=== PATIENT | female | born 1985 | race Caucasian/White ===

== ENCOUNTER 2020-10-06 17:41 | Emergency (ER) | payer SELFPAY ==
[2020-10-06 17:59] VITALS: BP 128/84; PULSE 84; RESP 16; TEMP 36.5; O2SAT 99; BMI 25.0
--- NOTE | 2020-10-06 20:27 | W.ED.WEAKNES ---
HPI - Weakness General: Chief complaint: Weakness Stated complaint: weak, feels faint, nausea Time Seen by Provider: 10/06/20 20:07 Source: patient Mode of arrival: ambulatory Limitations: no limitations History of Present Illness: HPI Narrative: 35-year-old female comes in today with general complaints of weakness. Patient reports that she has had a history of renal calculi and urinary tract infections. Patient states that symptoms been going on for over 2 months. Patient denies any pain. Patient denies any routine medications [id number] or prescription. Patient appears well. Patient appears in no pain. MD Complaint: generalized weakness Review of Systems General: Reports: 10 or more systems reviewed and unremarkable except in HPI and below Const: Reports: malaise [facility] ED PFSH: Social History (Updated 10/06/20 @ 18:05 by Pancho Ventura RN) Smoking and tobacco status: heavy tobacco smoker cigarettes Packs smoked per day: 1.25 Alcohol intake: current Alcohol intake frequency: holidays/special occasions only Substance/Drug Use: current Substance/Drug use frequency: few times a week Substance/Drug use type: Marijuana Physical Exam Const: COMMON NORMALS: no acute distress and patient oriented x3 GENERAL APPEARANCE: cooperative HENMT: COMMON NORMALS: normocephalic and Normal external nose present HEAD & SCALP: normal to inspection and normocephalic NOSE: Normal external nose present MOUTH: Normal oral and palatal mucosa present Eye: GENERAL EYE: appearance normal, both eyes and all related structures Neck/C-Spine: COMMON NORMALS: full ROM Lymph: LYMPHATIC: no lymphadenopathy noted Chest: COMMONS NORMALS: normal inspection of the chest Resp: COMMON NORMALS: normal respiratory effort EFFORT & INSPECTION: Yes able to speak in complete sentences Cardio: COMMON NORMALS: regular rate and regular rhythm RATE: regular rate RHYTHM: regular rhythm GI: COMMON NORMALS: non-tender : COMMON NORMALS: Yes no CVA tenderness BLADDER/KIDNEY EXAM: Yes no CVA tenderness Back/Pelvis: COMMON NORMALS: no CVA tenderness and thoracic and lumbar spine normal to inspection Extremity: COMMON NORMALS: normal to inspection Neuro: COMMON NORMALS: patient oriented x3 and moves all extremities Psych: COMMON NORMALS: mental status grossly normal and cooperative Skin: COMMON NORMALS: no rashes or lesions noted GENERAL SKIN EXAM: no rashes or lesions noted Course Vital Signs: Vital signs: Vital Signs Temperature 97.7 F 11/21/20 17:59 Pulse Rate 59 L 10/06/20 22:57 Respiratory Rate 16 10/06/20 17:59 Blood Pressure 128/86 10/06/20 22:57 Pulse Oximetry 99 10/06/20 17:59 MDM - Weakness MDM Narrative: Medical decision making narrative: Patient comes in to the ER stating that she just do not feel well. Patient reports for last 2 months she just has not felt well. Patient has a history of renal stones she reports. Patient does not think she has a kidney stone at this time but thinks she might have a urinary tract infection. Patient appears well. Patient appears in no distress. Abdomen soft nontender. Skin was warm and dry. Vital signs were normal. Differential diagnosis includes but not limited to UTI, malingering, vestibular neuritis, electrolyte disturbance. Laboratory values were normal except for some mild elevation of white blood cells at 12,000. Urine was positive for red blood cells, white blood cells, and some bacteria. Reviewed exam with patient with recommendations for treatment for urinary tract infection. Patient reported understanding agreed to plan. Lab Data: Labs: Lab Results 10/06/20 10/06/20 10/06/20 Range/Units 20:57 20:57 20:57 WBC 12.2 H (4.0-10.0) 10^3/ uL RBC 4.72 (4.1-5.3) 10^6/u L Hgb 15.1 (11.5-15.3) g/dL Hct 45.1 (37.0-47.0) % MCV 95.6 (81-99) fL MCH 32.0 (28.0-34.0) pg MCHC 33.5 (30.0-36.0) g/dL RDW 12.6 (12.1-15.1) % Plt Count 188 (130-400) 10^3/c mm MPV 11.4 H (7.4-10.4) fL Neut % (Auto) 70.0 % Lymph % (Auto) 24.7 % [place] % (Auto) 4.6 % Eos % (Auto) 0.2 % Baso % (Auto) 0.3 % Neut # (Auto) 8.51 H (1.8-7.7) 10^3/u L Lymph # (Auto) 3.0 (0.8-4.8) 10^3/u L [place] # (Auto) 0.6 (0.2-0.9) 10^3/u L Eos # (Auto) 0.0 (0.0-0.8) 10^3/u L Baso # (Auto) 0.0 (0.0-0.1) 10^3/u L Nucleated RBC % (a uto) 0 % Nucleated RBCs # 0.0 /100WBC Sodium 138 (136-145) mmol/L Potassium 3.5 (3.5-5.1) mmol/L Chloride 103 (98-107) mmol/L Carbon Dioxide 23 (22-29) mmol/L Anion Gap 15.5 (5-19) BUN 13 (6-20) mg/dL Creatinine 0.7 (0.5-0.9) mg/dL GFR Calculation 95.2 (90-130) mL/min Glucose 95 (65-115) mg/dL Calculated Osmolal ity 286 (285-295) mOsm/k g Calcium 9.7 (8.5-10.5) mg/dL Magnesium 2.0 (1.7-2.3) mg/dL Total Bilirubin 0.3 (0.15-1.2) mg/dL AST 14 (0-32) U/L ALT 13 (0-33) U/L Alkaline Phosphata se 61 (35-105) IU/L Troponin T Gen 5 n g/L (0-10) ng/L Total Protein 7.1 (6.6-8.7) g/dL Albumin 4.7 (3.5-5.2) g/dL Globulin 2.4 (1.3-4.6) g/dL TSH 1.17 (0.27-4.20) uIU/ mL HCG, Qual Negative (Negative) Urine Color (Yellow) Urine Appearance (CLEAR) Urine pH (5-7) Ur Specific Gravit y (1.005-1.030) Urine Protein (Negative) Urine Glucose (UA) (Normal) Urine Ketones (Negative) Urine Blood (Negative) Urine Nitrate (Negative) Urine Bilirubin (Negative) Urine Urobilinogen (Negative) mg/dL Ur Leukocyte Adelia ase (Negative) Urine RBC (0-2) /hpf Urine WBC (0-5) /hpf Ur Squamous Epith Cells (0-5) /hpf Ur Transition Epit h Cell /hpf Amorphous Sediment Urine Bacteria (NONE) /hpf Urine Mucus /hpf 10/06/20 10/06/20 Range/Units 20:57 22:05 WBC (4.0-10.0) 10^3/ uL RBC (4.1-5.3) 10^6/u L Hgb (11.5-15.3) g/dL Hct (37.0-47.0) % MCV (81-99) fL MCH (28.0-34.0) pg MCHC (30.0-36.0) g/dL RDW (12.1-15.1) % Plt Count (130-400) 10^3/c mm MPV (7.4-10.4) fL Neut % (Auto) % Lymph % (Auto) % [place] % (Auto) % Eos % (Auto) % Baso % (Auto) % Neut # (Auto) (1.8-7.7) 10^3/u L Lymph # (Auto) (0.8-4.8) 10^3/u L [place] # (Auto) (0.2-0.9) 10^3/u L Eos # (Auto) (0.0-0.8) 10^3/u L Baso # (Auto) (0.0-0.1) 10^3/u L Nucleated RBC % (a uto) % Nucleated RBCs # /100WBC Sodium (136-145) mmol/L Potassium (3.5-5.1) mmol/L Chloride (98-107) mmol/L Carbon Dioxide (22-29) mmol/L Anion Gap (5-19) BUN (6-20) mg/dL Creatinine (0.5-0.9) mg/dL GFR Calculation (90-130) mL/min Glucose (65-115) mg/dL Calculated Osmolal ity (285-295) mOsm/k g Calcium (8.5-10.5) mg/dL Magnesium (1.7-2.3) mg/dL Total Bilirubin (0.15-1.2) mg/dL AST (0-32) U/L ALT (0-33) U/L Alkaline Phosphata se (35-105) IU/L Troponin T Gen 5 n g/L 6 (0-10) ng/L Total Protein (6.6-8.7) g/dL Albumin (3.5-5.2) g/dL Globulin (1.3-4.6) g/dL TSH (0.27-4.20) uIU/ mL HCG, Qual (Negative) Urine Color Yellow (Yellow) Urine Appearance Clear (CLEAR) Urine pH 5 (5-7) Ur Specific Gravit y 1.020 (1.005-1.030) Urine Protein Neg (Negative) Urine Glucose (UA) Norm (Normal) Urine Ketones 2+ H (Negative) Urine Blood 3+ H (Negative) Urine Nitrate Negative (Negative) Urine Bilirubin Neg (Negative) Urine Urobilinogen Norm (Negative) mg/dL Ur Leukocyte Adelia ase Negative (Negative) Urine RBC 0-4 H (0-2) /hpf Urine WBC 0-4 H (0-5) /hpf Ur Squamous Epith Cells 0-4 H (0-5) /hpf Ur Transition Epit h Cell 0-4 /hpf Amorphous Sediment Not Reportable Urine Bacteria 1+ H (NONE) /hpf Urine Mucus 1+ /hpf Discharge Plan Discharge Patient Disposition: Home Clinical Impression: UTI (urinary tract infection) Qualifiers: Urinary tract infection type: acute cystitis Hematuria presence: with hematuria Qualified Code(s): N30.01 - Acute cystitis with hematuria Condition: Stable Prescriptions: New Bactrim DS 800-160 mg tablet 1 tab PO BID 7 Days Qty: 14 RF: 0 Discharge Orders: Discharge Order (Routine); Ordered 10/06/20 Ordered By: Aidan Laws Referrals: John Madrigal NP [Primary Care Provider] - Discharge Diet: Usual diet Discharge Activity: Increase activity as tolerated Patient Instructions: Urinary Tract Infection in Women (ED) Activity Restrictions/Additional Instructions: Drink plenty of water. Take medication as directed for the next 7 days. Follow-up with primary care for further treatment and evaluation. Return to the emergency department for new concerns. Coding Level of Care Code ED Simulation Educator for Anton Fwelaina Exam Comprehensive
[2020-10-06 21:33] LABS: HCG, Serum Qual Negative (Negative)
[2020-10-06 21:43] LABS: Troponin T (5th) Once 6 ng/L (0-10)
[2020-10-06 21:49] LABS: Basophils % 0.3 %; Eosinophils % 0.2 %; Hematocrit 45.1 % (37.0-47.0); Hemoglobin 15.1 g/dL (11.5-15.3); Lymphocytes % 24.7 %; Mean Corpuscular HGB Conc 33.5 g/dL (30.0-36.0); Mean Corpuscular Volume 95.6 fL (81-99); Mean Platelet Volume 11.4 fL (7.4-10.4); Monocytes # 0.6 10^3/uL (0.2-0.9); Monocytes % 4.6 %; Neutrophils # 8.51 10^3/uL (1.8-7.7); Nucleated Red Blood Cells % 0 %; Platelet Count 188 10^3/cmm (130-400); Red Blood Count 4.72 10^6/uL (4.1-5.3); Red Cell Distribution Width 12.6 % (12.1-15.1); White Blood Count 12.2 10^3/uL (4.0-10.0)
[2020-10-06 21:51] LABS: Alanine Aminotransferase 13 U/L (0-33); Albumin Level 4.7 g/dL (3.5-5.2); Alkaline Phosphatase 61 IU/L (35-105); Anion Gap 15.5 (5-19); Aspartate Amino Transferase 14 U/L (0-32); Blood Urea Nitrogen 13 mg/dL (6-20); Calcium 9.7 mg/dL (8.5-10.5); Carbon Dioxide 23 mmol/L (22-29); Chloride 103 mmol/L (98-107); Globulin 2.4 g/dL (1.3-4.6); Glomerular Filtration Rate 95.2 mL/min (90-130); Glucose 95 mg/dL (65-115); Osmolality Calculated 286 mOsm/kg (285-295); Potassium 3.5 mmol/L (3.5-5.1); Sodium 138 mmol/L (136-145); Thyroid Stimulating Hormone 1.17 uIU/mL (0.27-4.20); Total Bilirubin 0.3 mg/dL (0.15-1.2); Total Protein 7.1 g/dL (6.6-8.7)
[2020-10-06 22:54] LABS: Add Urine Microscopic? YES; Bilirubin Urine Neg (Negative); Blood Urine 3+ (Negative); Glucose Urine UA Norm (Normal); Ketones Urine 2+ (Negative); Leukocyte Esterase Urine Negative (Negative); Nitrate Urine Negative (Negative); Protein Urine Neg (Negative); Urine Appearance Clear (CLEAR); Urine Color Yellow (Yellow); Urobilinogen Urine Norm (Negative); pH Urine 5 (5-7)
[2020-10-06 22:55] LABS: RBC Urine 0-4 /hpf (0-2); Squamous Epithelial Cell Urine 0-4 /hpf (0-5); WBC Urine 0-4 /hpf (0-5)
[2020-10-06 22:56] LABS: Add Urine Culture? No; Bacteria Urine 1+ /hpf; Mucus Urine 1+ /hpf; Transitional Epi Cells Urine 0-4 /hpf
[2020-10-06 22:57] VITALS: BP 122/79; BP 122/91; BP 128/86; PULSE 59; PULSE 65; PULSE 87
[2020-10-06] MEDS: sulfamethoxazole-trimeth DS 160-800 mg Tablet 1 TAB PO (23:13)
== END 2020-10-06 23:15 | disposition home or self-care (01) ==
PROVIDERS: Emergency Provider Nurse Practitioner Family; PCP Nurse Practitioner Family
DX: N30.01 Acute cystitis with hematuria (principal); F17.210 Nicotine dependence, cigarettes, uncomplicated
CPT/HCPCS: 12345; 36415; 80053; 81001; 83735; 84443; 84484; 84703; 85025; 99281; 99283

== ENCOUNTER 2020-10-10 09:53 | Emergency (ER) | payer SELFPAY ==
[2020-10-10] VITALS (12 sets, daily range): BP systolic 96–133; BP diastolic 66–85; PULSE 65–84; RESP 16–18; TEMP 37; O2SAT 95–99; BMI 25.0
--- NOTE | 2020-10-10 10:09 | XR_ITS ---
WS: [id number] XR chest 1V portable [id number] REASON FOR EXAM: dyspnea/cough FINDINGS: The heart and mediastinum are within normal limits. Reticular nodular interstitial infiltrative [place] in both lower lobes. Minimal blunting of both costophrenic angles. Bony thorax is intact. XR/XR chest 1V portable [id number] IMPRESSION: Infiltrative changes in both lung bases compatible with acute pneumonitis. There may be small amounts of pleural fluid bilaterally.
--- NOTE | 2020-10-10 10:10 | CT_ITS ---
WS: [id number] CT ABDOMEN AND PELVIS WITH CONTRAST HISTORY: Abdominal pain for one week. TECHNIQUE: Imaging performed of the abdomen and pelvis with IV contrast. Single phase imaging of the abdomen. Coronal and sagittal reformats are submitted. All CT scans at [facility] use at least one of these dose optimization techniques: automated exposure control; mA and/or kV adjustment per patient size (includes targeted exams where dose is matched to clinical indication); or iterativ e reconstruction. IV CONTRAST: Omnipaque 300; 95 mL IV. Oral contrast: No DLP: 537.45 mGy.cm COMPARISON: None available. Lower thorax: Lung bases are clear. Heart is normal size. No hiatal hernia. Liver/biliary system: Normal size with no intrahepatic dilatation. Gallbladder: Mildly contracted gallbladder. No stones or inflammation. Pancreas: Normal. Spleen: Normal. Adrenal glands: Normal. Right kidney: Normal size kidney. There is several small, subcentimeter low-attenuation lesions which are probably cortical cysts. No obstruction. Left kidney: Enlarged kidney measures 13.2 cm in length. There is delayed enhancement of the renal pa renchyma. There are numerous areas of decreased attenuation which are probably cysts throughout the k idney. No obstruction. No calcification. Aorta: Normal. Lymphadenopathy: None. Free fluid: None. GI tract: The appendix is normal. No inflammation surrounding the appendix. There is some very minima l mucosal thickening involving the transverse colon and descending colon suggesting a mild colitis. N o fluid or adenopathy. Abdominal wall: Fat-containing umbilical hernia. Pelvis: Normally distended urinary bladder. Normal size uterus. No adnexal masses. Bones: Unremarkable. CT/CT abdomen pelvis w con* [id number] IMPRESSION: 1. No evidence for appendicitis. 2. Mild colitis involving the transverse and descending colon. No adenopathy o r ascites. 3. Enlarged LEFT kidney with numerous cysts and slight delayed excretion. No p rior studies but this is probably polycystic kidney disease. There are smaller cysts without renal enlargement on the RIGHT.
--- NOTE | 2020-10-10 10:20 | PC.NURSE ---
XR performed at bedside
--- NOTE | 2020-10-10 10:24 | W.ED.NAVMDI ---
HPI - Nausea/Vomiting/Diarrhea General: Chief complaint: Nausea/Vomiting/Diarrhea Stated complaint: uti Time Seen by Provider: 10/10/20 10:09 History of Present Illness: HPI Narrative: 35-year-old female presents complaining of nausea vomiting with dizziness for the last week. She was diagnosed with a UTI about 5 days ago she feels like UTI symptoms are better but she still is having nausea and vomiting she is also had some loose stools. She denies any hematochezia melena hematemesis or coffee-ground emesis. He was started on Bactrim when she was seen previously. She has subjectively had some fevers and chills she describes more as hot like hot flashes. She has had quite a bit of nausea no vomiting however, some loose stools.. She localizes most of her pain to the right lower quadrant. MD elicited complaint: nausea and flank pain Pertinent past history: anorexia Onset (ago): day(s) Description of diarrhea: semi-solid Associated nausea: Yes Radiation: RLQ Pain consistency: constant Severity: moderate Quality: cramping Exacerbating factors: none Relieving factors: none Associated symtoms: Reports fevers/chills, anorexia and nausea; Denies altered mental status, anxiety, bloating, change in vision, chest pain, cough, diaphoresis, decreased urine output, dizziness, dysuria, epistaxis, fatigue, fecal incontinence, headache(s), malaise, myalgias, numbness, palpitations, rash, short of breath, syncope, tenesmus, tinnitus or weakness Review of Systems Const: Denies: fatigue, malaise or diaphoresis Eyes: Denies: change in vision ENMT: Denies: tinnitus or epistaxis Card: Denies: chest pain, palpitations or syncope Resp: Denies: dyspnea, productive cough or non-productive cough GI: Reports: nausea; Denies: bloating or fecal incontinence : Denies: dysuria Skin/Breast: Denies: rash or pruritus Neuro: Denies: headache(s) or dizziness Psych: Denies: anxiety PFSH ED PFSH: Medical History (Updated 10/10/20 @ 13:11 by Owen Villatoro DO) Cervical cancer Nephrolithiasis Surgical History (Updated 10/10/20 @ 11:43 by Owen Villatoro DO) Hx of tympanostomy tubes S/P tonsillectomy and adenoidectomy Social History Smoking and tobacco status: heavy tobacco smoker cigarettes Packs smoked per day: 1.25 Alcohol intake: current Alcohol intake frequency: holidays/special occasions only Physical Exam Const: COMMON NORMALS: no acute distress EXAM LIMITATIONS: no altered mental status GENERAL APPEARANCE: cooperative and comfortable ORIENTATION/CONSCIOUSNESS: Yes awake, Yes oriented to person, Yes oriented to place and Yes oriented to time HENMT: COMMON NORMALS: normocephalic, atraumatic and hearing grossly normal bilaterally HEAD & SCALP: normocephalic and atraumatic Neck/C-Spine: COMMON NORMALS: no JVD Resp: COMMON NORMALS: normal respiratory effort, No retractions, No use of accessory muscles and clear to auscultation bilaterally AUSCULTATION: clear to auscultation bilaterally Cardio: COMMON NORMALS: no JVD, regular rate, regular rhythm and No murmurs present (Cardio) RATE: regular rate RHYTHM: regular rhythm GI: PALPATION: Yes Tenderness to palpation present (GI) Details: RLQ PERCUSSION: normal to percussion OTHER: Mild CVA tenderness on the right Extremity: COMMON NORMALS: normal to inspection, capillary refill normal, no clubbing, cyanosis or edema, no calf tenderness and no pedal edema Neuro: SENSORIUM/ORIENTATION: Yes oriented to person, Yes oriented to place and Yes oriented to time Skin: COMMON NORMALS: no rashes or lesions noted GENERAL SKIN EXAM: no rashes or lesions noted Course Vital Signs: Vital signs: Vital Signs Temperature 98.6 F 10/10/20 09:57 Pulse Rate 66 10/10/20 12:06 Respiratory Rate 16 10/10/20 12:06 Blood Pressure 121/68 10/10/20 12:06 Pulse Oximetry 96 10/10/20 12:06 MDM - Nausea/Vomiting/Diarrhea MDM Narrative: Medical decision making narrative: CT of the abdomen negative. At most recent visit 1121 beta-hCG was negative. UA is unremarkable. The only significant finding we have is of polycystic left kidney. We will go ahead and discharge her with pain and nausea medications have her follow-up with nephrology if her pain becomes uncontrollable return. Lab Data: Labs: Lab Results 10/10/20 10/10/20 10/10/20 Range/Units 10:10 10:28 10:28 WBC 8.1 (4.0-10.0) 10^3/ uL RBC 4.90 (4.1-5.3) 10^6/u L Hgb 15.5 H (11.5-15.3) g/dL Hct 46.1 (37.0-47.0) % MCV 94.1 (81-99) fL MCH 31.6 (28.0-34.0) pg MCHC 33.6 (30.0-36.0) g/dL RDW 12.7 (12.1-15.1) % Plt Count 180 (130-400) 10^3/c mm MPV 10.8 H (7.4-10.4) fL Neut % (Auto) 70.5 % Lymph % (Auto) 22.4 % [place] % (Auto) 6.3 % Eos % (Auto) 0.2 % Baso % (Auto) 0.4 % Neut # (Auto) 5.70 (1.8-7.7) 10^3/u L Lymph # (Auto) 1.8 (0.8-4.8) 10^3/u L [place] # (Auto) 0.5 (0.2-0.9) 10^3/u L Eos # (Auto) 0.0 (0.0-0.8) 10^3/u L Baso # (Auto) 0.0 (0.0-0.1) 10^3/u L Nucleated RBC % (a uto) 0 % Nucleated RBCs # 0.0 /100WBC Sodium 139 (136-145) mmol/L Potassium 3.8 (3.5-5.1) mmol/L Chloride 104 (98-107) mmol/L Carbon Dioxide 22 (22-29) mmol/L Anion Gap 16.8 (5-19) BUN 7 (6-20) mg/dL Creatinine 0.7 (0.5-0.9) mg/dL GFR Calculation 95.2 (90-130) mL/min Glucose 129 H (65-115) mg/dL Calculated Osmolal ity 288 (285-295) mOsm/k g Calcium 9.3 (8.5-10.5) mg/dL Total Bilirubin 0.2 (0.15-1.2) mg/dL AST 15 (0-32) U/L ALT 16 (0-33) U/L Alkaline Phosphata se 63 (35-105) IU/L Total Protein 7.5 (6.6-8.7) g/dL Albumin 4.4 (3.5-5.2) g/dL Globulin 3.1 (1.3-4.6) g/dL Lipase 23 (13-60) U/L Urine Color Straw (Yellow) Urine Appearance Clear (CLEAR) Urine pH 6.5 (5-7) Ur Specific Gravit y 1.005 (1.005-1.030) Urine Protein Neg (Negative) Urine Glucose (UA) Norm (Normal) Urine Ketones Negative (Negative) Urine Blood 2+ H (Negative) Urine Nitrate Negative (Negative) Urine Bilirubin Neg (Negative) Urine Urobilinogen Neg (Negative) mg/dL Ur Leukocyte Adelia ase Negative (Negative) Urine RBC 0-4 H (0-2) /hpf Urine WBC None (0-5) /hpf Ur Squamous Epith Cells 0-4 H (0-5) /hpf Amorphous Sediment Not Reportable Urine Bacteria Trace (NONE) /hpf Urine Mucus 1+ /hpf Discharge Plan Discharge Patient Disposition: Home Clinical Impression: Polycystic kidney disease, Abdominal pain Condition: Stable Prescriptions: New hydrocodone-acetaminophen 5-325 mg tablet 1 tab PO Q6H PRN (Reason: pain) Qty: 25 RF: 0 Zofran 4 mg tablet 4 mg PO Q6H PRN (Reason: nausea and vomiting) Qty: 20 RF: 0 No Action sulfamethoxazole-trimethoprim [Bactrim DS] 800-160 mg tablet 1 tab PO BID 7 Days Qty: 14 RF: 0 multivitamin Tablet 1 tab PO DAILY RF: 0 ibuprofen 200 mg Tablet 200 mg PO PRN RF: 0 Discharge Orders: Discharge Order (Routine); Ordered 10/10/20 Ordered By: Owen Villatoro Referrals: John Madrigal NP [Primary Care Provider] - Discharge Diet: Usual diet Discharge Activity: Increase activity as tolerated Activity Restrictions/Additional Instructions: Case management will call with a referral to nephrology. Return if you have worsening pain not controlled by prescriptions given at the time of discharge. Coding Level of Care Code ED Consumer Marketing Manager for g Fwd Exam Comprehensive
[2020-10-10] MEDS: ondansetron 2 mg/ML SDV 2 mL 4 MG IVP (10:28)
[2020-10-10] MEDS: sodium chloride 0.9% 1,000 ML 999 ML IV (10:29)
[2020-10-10 10:42] LABS: Basophils % 0.4 %; Eosinophils % 0.2 %; Hematocrit 46.1 % (37.0-47.0); Hemoglobin 15.5 g/dL (11.5-15.3); Lymphocytes # 1.8 10^3/uL (0.8-4.8); Lymphocytes % 22.4 %; Mean Corpuscular HGB Conc 33.6 g/dL (30.0-36.0); Mean Corpuscular Hemoglobin 31.6 pg (28.0-34.0); Mean Corpuscular Volume 94.1 fL (81-99); Mean Platelet Volume 10.8 fL (7.4-10.4); Monocytes # 0.5 10^3/uL (0.2-0.9); Monocytes % 6.3 %; Neutrophils % 70.5 %; Nucleated Red Blood Cells % 0 %; Platelet Count 180 10^3/cmm (130-400); Red Cell Distribution Width 12.7 % (12.1-15.1); White Blood Count 8.1 10^3/uL (4.0-10.0)
[2020-10-10 10:50] LABS: Add Urine Microscopic? YES; Bilirubin Urine Neg (Negative); Blood Urine 2+ (Negative); Glucose Urine UA Norm (Normal); Ketones Urine Negative (Negative); Leukocyte Esterase Urine Negative (Negative); Nitrate Urine Negative (Negative); Protein Urine Neg (Negative); Specific Gravity, Urine 1.005 (1.005-1.030); Urine Appearance Clear (CLEAR); Urine Color Straw (Yellow); Urobilinogen Urine Neg (Negative); pH Urine 6.5 (5-7)
[2020-10-10 10:51] LABS: Add Urine Culture? No; Bacteria Urine TRACE /hpf; Mucus Urine 1+ /hpf; RBC Urine 0-4 /hpf (0-2); Squamous Epithelial Cell Urine 0-4 /hpf (0-5)
[2020-10-10] MEDS: iohexol 300 mg/mL 100 mL Btl IV (10:54)
--- NOTE | 2020-10-10 10:57 | PC.NURSE ---
Pt to CT
[2020-10-10 11:04] LABS: Alanine Aminotransferase 16 U/L (0-33); Albumin Level 4.4 g/dL (3.5-5.2); Alkaline Phosphatase 63 IU/L (35-105); Anion Gap 16.8 (5-19); Aspartate Amino Transferase 15 U/L (0-32); Blood Urea Nitrogen 7 mg/dL (6-20); Calcium 9.3 mg/dL (8.5-10.5); Carbon Dioxide 22 mmol/L (22-29); Chloride 104 mmol/L (98-107); Globulin 3.1 g/dL (1.3-4.6); Glomerular Filtration Rate 95.2 mL/min (90-130); Glucose 129 mg/dL (65-115); Lipase 23 U/L (13-60); Osmolality Calculated 288 mOsm/kg (285-295); Potassium 3.8 mmol/L (3.5-5.1); Sodium 139 mmol/L (136-145); Total Bilirubin 0.2 mg/dL (0.15-1.2); Total Protein 7.5 g/dL (6.6-8.7)
--- NOTE | 2020-10-10 11:32 | US_ITS ---
WS: [id number] RENAL ULTRASOUND REASON FOR EXAM: R flank pain TECHNIQUE: Grayscale and Doppler ultrasound examination of the kidneys. FINDINGS: Right kidney: Right kidney measures 11.8 cm x 5.7 cm x 4.9 cm. No mass, hydronephrosis, or calculus. The multiple tiny cysts in the right kidney on the CT scan of earlier today are not identifiable on u ltrasound. Left kidney: Left kidney measures 11.2 cm x 5.2 cm x 6.3 cm. No calculus or hydronephrosis. Multiple cysts of varying size. Unremarkable urinary bladder. No other significant finding. US/US renal BI* [id number] IMPRESSION: Ultrasound evidence no further information to the CT scan on the abnormalities of the kidneys. The CT images are very suggestive of a variation in APKD, espec ially the left kidney.
[2020-10-10] MEDS: morphine 4 mg/mL SDV 1 mL 2 MG IVP (11:38)
--- NOTE | 2020-10-10 12:07 | PC.NURSE ---
Report given to SOFIYA Lora
== END 2020-10-10 13:34 | disposition home or self-care (01) ==
PROVIDERS: Emergency Provider Family Medicine; PCP Nurse Practitioner Family
DX: Q61.3 Polycystic kidney, unspecified (principal); Z85.41 Personal history of malignant neoplasm of cervix uteri; F17.210 Nicotine dependence, cigarettes, uncomplicated
CPT/HCPCS: 12345; 71045; 74177; 76770; 80053; 81001; 83690; 85025; 96361; 96374; 96375; 99283; J2270; J2405; J7030; Q9967

== ENCOUNTER 2020-10-12 09:30 | Emergency (ER) | payer SELFPAY ==
[2020-10-12 09:40] VITALS: BP 124/76; PULSE 86; RESP 16; TEMP 36.9; O2SAT 97; BMI 25.0
--- NOTE | 2020-10-12 09:54 | W.ED.FEMALGU ---
HPI - Female Genitourinary General: Chief complaint: Urogenital-Female Stated complaint: CYSTS ON KIDNEYS/NOT GETTING BETTER Time Seen by Provider: 10/12/20 09:48 History of Present Illness: HPI Narrative: 35-year-old female was seen [address] and her other work-up only showed polycystic kidney. She complained of some abdominal pain is more predominantly right-sided but there is no significant finding on the CT or lab work. She was discharged home with pain medications have scheduled follow-up with primary care and nephrology due to the holidays she was concerned because she does not have an appointment yet and is still having discomfort. States it is not worsened but also has not gotten any better. Patient denies fever dysuria denies diarrhea. CT done yesterday as well as renal ultrasound showed cystic kidney particularly in the left also there is a question of colitis but she has no colitis-like symptoms not having any diarrhea she does have some abdominal cramping. Interestingly today she relates more of her pain to her left side. She does state that the hydrocodone seem to make her stomach upset did not adequately treat the pain. Associated symptoms: Reports abdominal pain and nausea Review of Systems Const: Denies: fever(s), chills, body aches, change in appetite, fatigue or malaise ENMT: Denies: throat pain, ear or mastoid pain, nasal discharge or nasal congestion Card: Denies: chest pain, edema, dyspnea on exertion or orthopnea Resp: Denies: dyspnea, productive cough or non-productive cough GI: Reports: abdominal pain and nausea; Denies: vomiting, hematemesis, coffee ground emesis, diarrhea, constipation, bloating, hematochezia or melena : Reports: flank pain; Denies: difficulty voiding, dysuria, urinary frequency or urinary urgency Skin/Breast: Denies: rash or pruritus PFSH ED PFSH: Medical History Cervical cancer Nephrolithiasis Surgical History Hx of tympanostomy tubes S/P tonsillectomy and adenoidectomy Social History Smoking and tobacco status: heavy tobacco smoker cigarettes Packs smoked per day: 1.25 Alcohol intake: current Alcohol intake frequency: holidays/special occasions only Physical Exam Const: COMMON NORMALS: no acute distress GENERAL APPEARANCE: cooperative and comfortable ORIENTATION/CONSCIOUSNESS: Yes awake, Yes oriented to person, Yes oriented to place and Yes oriented to time HENMT: COMMON NORMALS: normocephalic, atraumatic and hearing grossly normal bilaterally HEAD & SCALP: normocephalic and atraumatic Eye: COMMON NORMALS: Equal, round and reactive pupils present, EOMs intact bilaterally, conjunctivae normal and no scleral icterus CONJUNCTIVA: Yes conjunctivae normal PUPIL: Yes Equal, round and reactive pupils present Neck/C-Spine: COMMON NORMALS: no JVD Resp: COMMON NORMALS: normal respiratory effort, No retractions, No use of accessory muscles and clear to auscultation bilaterally AUSCULTATION: clear to auscultation bilaterally Cardio: COMMON NORMALS: no JVD, regular rate, regular rhythm and No murmurs present (Cardio) RATE: regular rate RHYTHM: regular rhythm GI: COMMON NORMALS: Soft to palpation and No hepatosplenomegaly present AUSCULTATION: Yes normoactive bowel sounds PALPATION: Yes Soft to palpation, No Tenderness to palpation present (GI), No Guarding due to palpation present (GI) and Yes No hepatosplenomegaly present Extremity: COMMON NORMALS: normal to inspection, capillary refill normal, no clubbing, cyanosis or edema, no calf tenderness and no pedal edema Neuro: SENSORIUM/ORIENTATION: Yes oriented to person, Yes oriented to place and Yes oriented to time Skin: COMMON NORMALS: no rashes or lesions noted GENERAL SKIN EXAM: no rashes or lesions noted Course Vital Signs: Vital signs: Vital Signs Temperature 98.4 F 10/12/20 09:40 Pulse Rate 87 10/12/20 10:03 Respiratory Rate 18 10/12/20 10:03 Blood Pressure 124/76 10/12/20 10:03 Pulse Oximetry 96 10/12/20 10:04 MDM - Female [facility] Narrative: Medical decision making narrative: Discussed with the patient that this is probably something more that will need to be managed. There was some colitis-like changes on her CT but they were very mild and is not having any diarrhea I think that giving her antibiotics this point would actually make it worse. We have actually discussed this yesterday as well. I will give her a different antiemetic and gave her a different pain medications, tramadol. Gave her handwritten prescription for promethazine. We will get her to follow-up with nephrology through case management. Also discussed with her given there is no significant changes in her lab work and has a benign abdominal exam would not recommend a repeat CT as it is unlikely to show anything at this point. Lab Data: Labs: Lab Results 10/12/20 10/12/20 10/12/20 Range/Units 10:10 10:10 10:54 WBC 8.9 (4.0-10.0) 10^3/ uL RBC 5.24 (4.1-5.3) 10^6/u L Hgb 16.6 H (11.5-15.3) g/dL Hct 49.5 H (37.0-47.0) % MCV 94.5 (81-99) fL MCH 31.7 (28.0-34.0) pg MCHC 33.5 (30.0-36.0) g/dL RDW 12.7 (12.1-15.1) % Plt Count 182 (130-400) 10^3/c mm MPV 10.7 H (7.4-10.4) fL Neut % (Auto) 68.6 % Lymph % (Auto) 25.1 % [place] % (Auto) 4.8 % Eos % (Auto) 0.9 % Baso % (Auto) 0.3 % Neut # (Auto) 6.10 (1.8-7.7) 10^3/u L Lymph # (Auto) 2.2 (0.8-4.8) 10^3/u L [place] # (Auto) 0.4 (0.2-0.9) 10^3/u L Eos # (Auto) 0.1 (0.0-0.8) 10^3/u L Baso # (Auto) 0.0 (0.0-0.1) 10^3/u L Nucleated RBC % (a uto) 0 % Nucleated RBCs # 0.0 /100WBC Sodium 137 (136-145) mmol/L Potassium 4.5 (3.5-5.1) mmol/L Chloride 103 (98-107) mmol/L Carbon Dioxide 21 L (22-29) mmol/L Anion Gap 17.5 (5-19) BUN 11 (6-20) mg/dL Creatinine 0.7 (0.5-0.9) mg/dL GFR Calculation 95.2 (90-130) mL/min Glucose 98 (65-115) mg/dL Calculated Osmolal ity 283 L (285-295) mOsm/k g Calcium 9.7 (8.5-10.5) mg/dL Urine Color Yellow (Yellow) Urine Appearance Clear (CLEAR) Urine pH 6.5 (5-7) Ur Specific Gravit y 1.005 (1.005-1.030) Urine Protein Neg (Negative) Urine Glucose (UA) Norm (Normal) Urine Ketones 1+ H (Negative) Urine Blood 2+ H (Negative) Urine Nitrate Negative (Negative) Urine Bilirubin Neg (Negative) Urine Urobilinogen Norm (Negative) mg/dL Ur Leukocyte Adelia ase Negative (Negative) Urine RBC 0-4 H (0-2) /hpf Urine WBC 0-4 H (0-5) /hpf Ur Squamous Epith Cells 10-15 H (0-5) /hpf Amorphous Sediment Not Reportable Urine Bacteria Trace (NONE) /hpf Discharge Plan Discharge Patient Disposition: Home Clinical Impression: Abdominal pain, Polycystic kidney disease Condition: Stable Prescriptions: New tramadol 50 mg tablet 50 mg PO Q6H PRN (Reason: pain) Qty: 30 RF: 0 No Action sulfamethoxazole-trimethoprim [Bactrim DS] 800-160 mg tablet 1 tab PO BID 7 Days Qty: 14 RF: 0 multivitamin Tablet 1 tab PO DAILY RF: 0 ibuprofen 200 mg Tablet 200 mg PO PRN RF: 0 hydrocodone-acetaminophen 5-325 mg tablet 1 tab PO Q6H PRN (Reason: pain) Qty: 25 RF: 0 ondansetron HCl [Zofran] 4 mg tablet 4 mg PO Q6H PRN (Reason: nausea and vomiting) Qty: 20 RF: 0 Depo-Provera See Rx Instructions .ROUTE .COMPLEX RF: 0 Discharge Orders: Discharge Order (Routine); Ordered 10/12/20 Ordered By: Owen Villatoro Referrals: John Madrigal NP [Primary Care Provider] - Discharge Diet: Usual diet Patient Instructions: Abdominal Pain (ED) Activity Restrictions/Additional Instructions: Case management will call to arrange for appointment with nephrology Coding Level of Care Code ED Glaze Maker for Chg Fwd Exam Comprehensive
[2020-10-12 10:03] VITALS: BP 124/76; PULSE 87; RESP 18; O2SAT 96
[2020-10-12 10:04] VITALS: O2SAT 96
[2020-10-12 10:25] LABS: Basophils % 0.3 %; Eosinophils # 0.1 10^3/uL (0.0-0.8); Eosinophils % 0.9 %; Hematocrit 49.5 % (37.0-47.0); Hemoglobin 16.6 g/dL (11.5-15.3); Lymphocytes # 2.2 10^3/uL (0.8-4.8); Lymphocytes % 25.1 %; Mean Corpuscular HGB Conc 33.5 g/dL (30.0-36.0); Mean Corpuscular Hemoglobin 31.7 pg (28.0-34.0); Mean Corpuscular Volume 94.5 fL (81-99); Mean Platelet Volume 10.7 fL (7.4-10.4); Monocytes # 0.4 10^3/uL (0.2-0.9); Monocytes % 4.8 %; Neutrophils % 68.6 %; Nucleated Red Blood Cells % 0 %; Platelet Count 182 10^3/cmm (130-400); Red Blood Count 5.24 10^6/uL (4.1-5.3); Red Cell Distribution Width 12.7 % (12.1-15.1); White Blood Count 8.9 10^3/uL (4.0-10.0)
[2020-10-12 10:44] LABS: Anion Gap 17.5 (5-19); Blood Urea Nitrogen 11 mg/dL (6-20); Calcium 9.7 mg/dL (8.5-10.5); Carbon Dioxide 21 mmol/L (22-29); Chloride 103 mmol/L (98-107); Glomerular Filtration Rate 95.2 mL/min (90-130); Glucose 98 mg/dL (65-115); Osmolality Calculated 283 mOsm/kg (285-295); Potassium 4.5 mmol/L (3.5-5.1); Sodium 137 mmol/L (136-145)
[2020-10-12 11:24] LABS: Add Urine Microscopic? YES; Bacteria Urine TRACE /hpf; Bilirubin Urine Neg (Negative); Blood Urine 2+ (Negative); Glucose Urine UA Norm (Normal); Ketones Urine 1+ (Negative); Leukocyte Esterase Urine Negative (Negative); Nitrate Urine Negative (Negative); Protein Urine Neg (Negative); RBC Urine 0-4 /hpf (0-2); Specific Gravity, Urine 1.005 (1.005-1.030); Urine Appearance Clear (CLEAR); Urine Color Yellow (Yellow); Urobilinogen Urine Norm (Negative); WBC Urine 0-4 /hpf (0-5); pH Urine 6.5 (5-7)
[2020-10-12 11:25] LABS: Add Urine Culture? No
[2020-10-12] MEDS: meclizine 25 mg tablet PO (11:53)
[2020-10-12 11:54] VITALS: RESP 18; O2SAT 98
[2020-10-12] MEDS: morphine 4 mg/mL SDV 1 mL 2 MG IVP (11:54)
[2020-10-12 12:04] VITALS: BP 115/69; PULSE 91; RESP 18; O2SAT 93
== END 2020-10-12 12:05 | disposition home or self-care (01) ==
PROVIDERS: Emergency Provider Family Medicine; PCP Nurse Practitioner Family
DX: Q61.3 Polycystic kidney, unspecified (principal); Z85.41 Personal history of malignant neoplasm of cervix uteri; F17.210 Nicotine dependence, cigarettes, uncomplicated
CPT/HCPCS: 12345; 80048; 81001; 85025; 96374; 96375; 99282; 99283; J2270; J8597

== ENCOUNTER 2021-04-09 14:02 | Outpatient (CLI) | payer MEDICAID, SELFPAY ==
--- NOTE | 2021-04-09 14:09 | US_ITS ---
WS: [id number] RENAL ULTRASOUND HISTORY: CKD STAGE 2 COMPARISON: CT 10/10/2020 TECHNIQUE: 2-D and color Doppler imaging of the kidney submitted. Right kidney: 10.8 cm x 6.1 cm x 4.6 cm. Normal echogenicity with no hydronephrosis or mass. Left kidney: 12.4 cm x 5.6 cm x 5.0 cm. Slightly enlarged kidney with multiple small cysts throughout the renal parenchyma. Similar to the pr ior CT of 10/10/2020. No obstruction. Aorta: Normal. Urinary Bladder: Nondistended. US/US renal BI* [id number] IMPRESSION: 1. Multiple small cysts throughout the LEFT kidney. Similar to the prior study of 10/10/2020. No hydronephrosis. 2. Normal RIGHT kidney.
== END 2021-04-09 14:03 | disposition home or self-care (01) ==
PROVIDERS: PCP Nurse Practitioner Family; Visit Provider Internal Medicine Nephrology
DX: N18.2 Chronic kidney disease, stage 2 (mild) (principal); Q61.02 Congenital multiple renal cysts
CPT/HCPCS: 76770

== ENCOUNTER 2022-01-01 16:28 | Emergency (ER) | payer SELFPAY ==
[2022-01-01 16:39] VITALS: BP 124/87; PULSE 86; RESP 14; TEMP 36.7; O2SAT 97; BMI 29.1
--- NOTE | 2022-01-01 17:55 | ECG_ITS ---
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 Measurements Intervals [place] Rate: 83 P: 79 WI: 150 QRS: -62 QRSD: 82 T: 64 QT: 376 QTc: 443 Interpretive Statements SINUS RHYTHM LOW QRS VOLTAGE IN PRECORDIAL LEADS [QRS DEFLECTION < 1.0 mV IN CHEST LEADS] LEFT ANTERIOR FASCICULAR BLOCK [QRS AXIS <= -45, QR IN I, RS IN II] POSSIBLE ANTERIOR MYOCARDIAL INFARCTION , PROBABLY OLD [30 ms Q WAVE IN V3/V4, OR R < 0.2 mV IN V4] No previous ECG available for comparison Electronically Signed On 01-01-2022 21:21:21 ACID BLEACHER by Hailey Galvan M.D. [id number]
[2022-01-01 17:59] VITALS: BP 116/104; PULSE 80; RESP 16; O2SAT 96
[2022-01-01 18:47] LABS: Basophils % 0.3 %; Eosinophils # 0.1 10^3/uL (0.0-0.8); Eosinophils % 0.6 %; Hematocrit 49.4 % (37.0-47.0); Hemoglobin 16.2 g/dL (11.5-15.3); Lymphocytes # 3.2 10^3/uL (0.8-4.8); Lymphocytes % 26.5 %; Mean Corpuscular HGB Conc 32.8 g/dL (30.0-36.0); Mean Corpuscular Hemoglobin 32.7 pg (28.0-34.0); Mean Corpuscular Volume 99.8 fl (81-99); Mean Platelet Volume 11.3 fL (7.4-10.4); Monocytes # 0.6 10^3/uL (0.2-0.9); Monocytes % 5.1 %; Neutrophils # 7.98 10^3/uL (1.8-7.7); Neutrophils % 67.2 %; Nucleated Red Blood Cells % 0 %; Platelet Count 189 10^3/cmm (130-400); Red Blood Count 4.95 10^6/uL (4.1-5.3); Red Cell Distribution Width 16.5 % (12.1-15.1); White Blood Count 11.9 10^3/uL (4.0-10.0)
[2022-01-01 18:59] VITALS: BP 133/90; PULSE 80; RESP 16; O2SAT 96
--- NOTE | 2022-01-01 18:59 | W.ED.GENADLT ---
HPI - General Adult General: Chief complaint: Arrhythmia/Palpitations Stated complaint: RAPID HR AAND SOB Time Seen by Provider: 01/01/22 17:58 History of Present Illness: Patient is a 36-year-old female patient, who presents the emergency room after getting her booster shots with complaints of palpitation and shortness of breath. Patient underwent her booster shot earlier this morning at shortly after, she has experienced her heart fluttering and mild shortness of breath. Patient denies any leg swelling, cough, sore throat, fever/chills, body ache, abdominal complaints, nausea/vomiting, diarrhea melena or hematochezia. No urinary complaints. Of note, patient denies any lower extremity swelling. Patient denies any pleuritic chest pain or active exertional chest pain. Patient is a smoker and has been using Depo-Provera. Patient currently does not have any Covid symptoms but contracted Covid 2 weeks ago. Onset: earlier today Duration:ongoing Location:home Severity:mild/moderate Associated symptoms: Reports dyspnea and palpitations; Deny chest pain, nausea, rash or vomiting Review of Systems Const: Denies: fever(s) or chills Eyes: Denies: change in vision ENMT: Denies: mouth pain Card: Reports: palpitations; Denies: chest pain Resp: Reports: dyspnea; Denies: non-productive cough GI: Denies: abdominal pain, nausea, vomiting or diarrhea : Denies: dysuria Musc: Denies: extremity pain Skin/Breast: Denies: rash or new lesions Neuro: Denies: weakness in extremities Psych: Reports: other (Normal mood) Claudio/Lymph: Denies: easy bruising PFSH ED PFSH: Medical History Cervical cancer Nephrolithiasis Surgical History Hx of tympanostomy tubes S/P tonsillectomy and adenoidectomy Social History Smoking and tobacco status: heavy tobacco smoker cigarettes Packs smoked per day: 1.25 Alcohol intake: current Alcohol intake frequency: holidays/special occasions only Physical Exam Const: COMMON NORMALS: alert HENMT: COMMON NORMALS: atraumatic HEAD & SCALP: atraumatic MOUTH: moist mucous membranes not abnormal Eye: COMMON NORMALS: EOMs intact bilaterally and conjunctivae normal CONJUNCTIVA: Yes conjunctivae normal Neck/C-Spine: COMMON NORMALS: full ROM and supple Resp: COMMON NORMALS: normal respiratory effort and clear to auscultation bilaterally AUSCULTATION: clear to auscultation bilaterally Cardio: COMMON NORMALS: regular rate RATE: regular rate OTHER: 2+ radial pulses b/l GI: COMMON NORMALS: Soft to palpation and non-tender PALPATION: Yes Soft to palpation Extremity: COMMON NORMALS: full ROM Neuro: SENSORIUM/ORIENTATION: Yes alert MOTOR EXAM: No Abnormal motor strength present and Other motor observations present (no focal motor deficits) Psych: COMMON NORMALS: speech normal SPEECH: Yes normal speech MOOD & AFFECT: Yes euthymic mood Course Vital Signs: Vital signs: Vital Signs Temperature 98.1 F 01/01/22 16:39 Pulse Rate 82 01/01/22 20:05 Respiratory Rate 19 H 01/01/22 20:05 Blood Pressure 136/99 01/01/22 20:05 Pulse Oximetry 98 01/01/22 20:05 MDM - General Adult Medical Decision Making 36-year-old female presented to the emergency room for evaluation of palpitation and dyspnea after getting the covid booster. Exam, patient is hemodynamically stable, 2+ radial pulses, lungs appear to be clear to auscultation. Lower extremities swelling not appreciated. Of Homans' sign. Lab work-up showed mild leukocytosis 11.9. Chest x-ray appears to be clear. EKG does not show any signs of dysrhythmia or focal finding. D-dimer appears to be within normal limit. Doubt ACS/PE or other emergent causes of chest pain. No suspicion for aortic dissection given no widened mediastinum, 2+ upper extremity pulses, or tearing pain. No suspicion for PE given no pleuritic chest pain, recent immobilization or surgery hemoptysis, or other VTE risk factors. EKG is non-ischemic. XR normal. I have given patient follow up with our briefcase sewer to be seen by our PCP for evaluation. Patient aware of a call from our briefcase sewer to schedule for appointment(s) and verbalizes understanding of the importance of following up. Lab Data : 01/01/22 18:30 01/01/22 19:20 Radiology Impressions Chest X-Ray 01/01/22 19:09 IMPRESSION: 1. No focal acute pulmonary disease. 2. No change from prior. Laboratory Results WBC 11.9 10^3/uL (4.0-10.0) H 01/01/22 18:30 RBC 4.95 10^6/uL (4.1-5.3) 01/01/22 18:30 Hgb 16.2 g/dL (11.5-15.3) H 01/01/22 18:30 Hct 49.4 % (37.0-47.0) H 01/01/22 18:30 MCV 99.8 fl (81-99) H 01/01/22 18:30 MCH 32.7 pg (28.0-34.0) 01/01/22 18: MCHC 32.8 g/dL (30.0-36.0) 01/01/22 18:30 RDW 16.5 % (12.1-15.1) H 01/01/22 18:30 Plt Count 189 10^3/cmm (130-400) 01/01/22 18:30 MPV 11.3 fL (7.4-10.4) H 01/01/22 18:30 Neut % (Auto) 67.2 % 01/01/22 18:30 Lymph % (Auto) 26.5 % 01/01/22 18:30 [place] % (Auto) 5.1 % 01/01/22 18:30 Eos % (Auto) 0.6 % 01/01/22 18:30 Baso % (Auto) 0.3 % 01/01/22:30 Neut # (Auto) 7.98 10^3/uL (1.8-7.7) H 01/01/22 18:30 Lymph # (Auto) 3.2 10^3/uL (0.8-4.8) 01/01/22 18:30 [place] # (Auto) 0.6 10^3/uL (0.2-0.9) 01/01/22 18:30 Eos # (Auto) 0.1 10^3/uL (0.0-0.8) 01/01/22 18:30 Baso # (Auto) 0.0 10^3/uL (0.0-0.1) 01/01/22 18:30 Nucleated RBC % (auto) 0 % 01/01/22 18:30 Nucleated RBCs # 0.0 /100WBC 01/01/22 18:30 D-Dimer 0.37 ug/mIFEU (0-0.59) 01/01/22 19:48 Sodium 138 mmol/L (136-145) 01/01/22 19:20 Potassium 4.3 mmol/L (3.5-5.1) 01/01/22 19:20 Chloride 104 mmol/L (98-107) 01/01/22 19:20 Carbon Dioxide 23 mmol/L (22-29) 01/01/22 19:20 Anion Gap 15.3 (5-19) 01/01/22 19:20 BUN 16 mg/dL (6-20) 01/01/22 19:20 Creatinine 0.7 mg/dL (0.5-0.9) 01/01/22 19:20 GFR Calculation 94.7 mL/min (90-130) 01/01/22 19:20 Glucose 97 mg/dL (65-115) 01/01/22 19:20 Calculated Osmolality 287 mOsm/kg (285-295) 01/01/22 19:20 Calcium 10.0 mg/dL (8.5-10.5) 01/01/22 19:20 Magnesium 2.1 mg/dL (1.7-2.3) 01/01/22 19:20 Imaging Data Other Imaging: Radiologist's impression: [address] [address] XRay Report Signed Patient: Tiffanie Kirkland Unit #: [id number] : 1985 Age/Sex: 36 / F ADM Date: 01/01/22 Loc: ER Room/Bed: Attending Dr: Ordering Provider/Ordering MD: Liliana Hamilton MD Date of Service: 01/01/22 Procedure(s): XR chest 1V portable [id number] Accession Number(s): [id number] Report Number: [id number] PROCEDURE INFORMATION: Exam: XR Chest Exam date and time: 01/01/2022 7:09 PM Age: 36 years old Clinical indication: Shortness of breath and other: Rapid heart beat; Additional info: Dyspnea TECHNIQUE: Imaging protocol: XR of the chest. Views: 1 view. COMPARISON: CR XR chest 1V portable [id number] 10/10/2020 10:10 AM FINDINGS: Lungs: Emphysematous changes. Hyperinflation pattern. Negative for consolidation. Pleural spaces: Unremarkable. No pleural effusion. No pneumothorax. Heart/Mediastinum: Unremarkable. No cardiomegaly. Bones/joints: Unremarkable. XR/XR chest 1V portable [id number] IMPRESSION: 1. No focal acute pulmonary disease. 2. No change from prior. ? Dictated By: Demarcus Mcnair Signed By: Demarcus Mcnair Signed Date/Time: 01/01/222006 DD/ 08 Discharge Plan Discharge Patient Disposition: Home Clinical Impression: Palpitations, Dyspnea Condition: Stable Prescriptions: New acetaminophen 500 mg tablet 500 mg PO Q6H PRN (Reason: pain) 5 Days Qty: 20 0RF No Action prednisone 20 mg tablet 20 mg PO DAILY 5 Days Qty: 5 0RF doxycycline hyclate 100 mg capsule 100 mg PO BID 5 Days Qty: 10 0RF multivitamin Tablet 1 tab PO DAILY 0RF ibuprofen 200 mg Tablet 200 mg PO PRN 0RF hydrocodone-acetaminophen 5-325 mg tablet 1 tab PO Q6H PRN (Reason: pain) Qty: 25 0RF Rx Instructions: PT STATES THIS MEDICATION MAKES HER ITCH A LITTLE ondansetron HCl [Zofran] 4 mg tablet 4 mg PO Q6H PRN (Reason: nausea and vomiting) Qty: 20 0RF Depo-Provera See Rx Instructions .ROUTE .COMPLEX 0RF Rx Instructions: ONE INJECTION EVERY 3 MONTHS PT STATES SHE IS DUE TO GET Nov tramadol 50 mg tablet 50 mg PO Q6H PRN (Reason: pain) Qty: 30 0RF Discharge Orders: Discharge ED (Routine); Ordered 01/01/22 Ordered By: Liliana Hamilton Referrals: John Madrigal NP [Primary Care Provider] - Discharge Diet: Advance as tolerated Discharge Activity: Increase activity as tolerated Patient Instructions: Heart Palpitations (ED), Dyspnea (ED) Activity Restrictions/Additional Instructions: Come back to the emergency room if your chest pain worsens, have any fever or chills, worsening shortness of breath, worsening exertional lightheadedness, or any new or concerning complaints. Stand Alone Forms: Work/School Release Coding Level of Care Code ED Cell Plasterer for Chg Fwd Exam Comprehensive
[2022-01-01] MEDS: lidocaine 2% viscous 15 ML, aluminum-mag hydrox-simethicon 30 ML, sucralfate oral liq 1 GM PO (19:06)
[2022-01-01] MEDS: sodium chloride 0.9% 1,000 ML 999 ML IV (19:06)
--- NOTE | 2022-01-01 19:09 | XRR_ITS ---
PROCEDURE INFORMATION: Exam: XR Chest Exam date and time: 01/01/2022 7:09 PM Age: 36 years old Clinical indication: Shortness of breath and other: Rapid heart beat; Additional info: Dyspnea TECHNIQUE: Imaging protocol: XR of the chest. Views: 1 view. COMPARISON: CR XR chest 1V portable [id number] 10/10/2020 10:10 AM FINDINGS: Lungs: Emphysematous changes. Hyperinflation pattern. Negative for consolidation. Pleural spaces: Unremarkable. No pleural effusion. No pneumothorax. Heart/Mediastinum: Unremarkable. No cardiomegaly. Bones/joints: Unremarkable. XR/XR chest 1V portable [id number] IMPRESSION: 1. No focal acute pulmonary disease. 2. No change from prior.
[2022-01-01 19:44] LABS: Anion Gap 15.3 (5-19); Blood Urea Nitrogen 16 mg/dL (6-20); Carbon Dioxide 23 mmol/L (22-29); Chloride 104 mmol/L (98-107); Glomerular Filtration Rate 94.7 mL/min (90-130); Glucose 97 mg/dL (65-115); Magnesium 2.1 mg/dL (1.7-2.3); Osmolality Calculated 287 mOsm/kg (285-295); Potassium 4.3 mmol/L (3.5-5.1); Sodium 138 mmol/L (136-145)
[2022-01-01 20:05] VITALS: BP 136/99; PULSE 82; RESP 19; O2SAT 98
[2022-01-01 20:31] LABS: D Dimer 0.37 ug/mIFEU (0-0.59)
[2022-01-01 20:54] VITALS: BP 121/86; PULSE 83; RESP 20; O2SAT 97
== END 2022-01-01 21:02 | disposition home or self-care (01) ==
PROVIDERS: Emergency Provider Emergency Medicine; PCP Nurse Practitioner Family
DX: R00.2 Palpitations (principal); R06.00 Dyspnea, unspecified; Z85.41 Personal history of malignant neoplasm of cervix uteri; F17.210 Nicotine dependence, cigarettes, uncomplicated
CPT/HCPCS: 71045; 80048; 83735; 85025; 85378; 93005; 96360; 99284; J7030

== ENCOUNTER 2022-05-23 13:42 | Outpatient (CLI) | payer MEDICAID, SELFPAY ==
--- NOTE | 2022-05-23 13:53 | US_ITS ---
WS: [id number] RENAL ULTRASOUND HISTORY: CONGENITAL MULTIPLE RENAL CYSTS COMPARISON: 04/09/2021 TECHNIQUE: 2-D and color Doppler imaging of the kidney submitted. Right kidney: 11.3 cm x 5.4 cm x 4.5 cm. Normal echogenicity with no hydronephrosis or mass. Left kidney: 14.3 cm x 6.2 cm x 6.0 cm. Kidney is enlarged and there are multiple small cysts throughout the kidney. These cysts are ill-defi hira. There is obliteration of the normal cortical medullary differentiation and renal parenchyma. The largest cyst is probably a collection of cysts in the superior pole measuring 2.9 x 3.5 x 4.6 cm. Th e number of small cyst appears to have increased. Aorta: Normal. Urinary Bladder: Normal distention. US/US renal BI* [id number] IMPRESSION: 1. Normal RIGHT kidney. 2. Numerous small ill-defined cysts throughout the LEFT kidney. The LEFT kidne y is enlarged and the cysts appear more abundant. Poor cortical medullary diffe rentiation. Suspect progression of chronic medical renal disease.
== END 2022-05-23 13:43 | disposition home or self-care (01) ==
LOC: RAD 13:44
PROVIDERS: PCP Nurse Practitioner Family; Visit Provider Internal Medicine Nephrology
DX: Q61.02 Congenital multiple renal cysts (principal)
CPT/HCPCS: 76770

== ENCOUNTER 2022-06-11 11:06 | Outpatient (CLI) | payer MEDICAID, SELFPAY ==
[2022-06-11 12:48] LABS: Add Urine Microscopic? NO; Charge for UA Resulting for Rev
[2022-06-11 13:02] LABS: Bilirubin Urine Neg (Negative); Blood Urine Neg (Negative); Glucose Urine UA Norm (Normal); Ketones Urine 1+ (Negative); Nitrate Urine Negative (Negative); Protein Urine Neg (Negative); Specific Gravity, Urine 1.005 (1.005-1.030); Sulfosalicylic Acid Urine Negative (Negative); Urine Appearance Clear (CLEAR); Urine Color Yellow (Yellow); Urobilinogen Urine Norm (Negative); pH Urine 8 (5-7)
[2022-06-11 13:03] LABS: Leukocyte Esterase Urine Negative (Negative)
[2022-06-11 13:29] LABS: Albumin Level 4.4 g/dL (3.5-5.2); Blood Urea Nitrogen 14 mg/dL (6-20); Calcium 9.4 mg/dL (8.5-10.5); Carbon Dioxide 24 mmol/L (22-29); Chloride 101 mmol/L (98-107); Glomerular Filtration Rate 94.2 mL/min (90-130); Glucose 82 mg/dL (65-115); Phosphorus 3.2 mg/dL (2.5-4.5); Sodium 136 mmol/L (136-145)
[2022-06-11 13:46] LABS: Anion Gap 15.2 (5-19); Potassium 4.2 mmol/L (3.5-5.1)
== END 2022-06-11 11:07 | disposition home or self-care (01) ==
LOC: LAB 11:30
PROVIDERS: PCP Nurse Practitioner Family; Visit Provider Internal Medicine Nephrology
DX: Q61.02 Congenital multiple renal cysts (principal)
CPT/HCPCS: 36415; 80069; 81003

== ENCOUNTER 2022-06-17 09:53 | Day surgery (SDC) | payer MEDICAID, SELFPAY ==
[2022-06-16 12:10] VITALS: BMI 26.7
[2022-06-17] VITALS (10 sets, daily range): BP systolic 99–109; BP diastolic 60–85; PULSE 59–90; RESP 16–20; TEMP 36.3–36.7; O2SAT 91–97
[2022-06-17] MEDS: scopolamine 1.5 Patch 1 PATCH TRANSDERMA (10:37)
[2022-06-17] MEDS: sodium chloride 0.9% 1,000 ML 30 ML IV (10:50)
[2022-06-17] MEDS: gabapentin 300 mg Capsule PO (10:52)
[2022-06-17] MEDS: phenazopyridine 100 mg Tablet 200 MG PO (10:52)
[2022-06-17] MEDS: ketorolac 30 mg/mL INJ IVP (10:58)
[2022-06-17] MEDS: acetaminophen 1,000 MG/100 ML PIGGYBACK 400 MG IV (11:03)
--- NOTE | 2022-06-17 11:21 | W.PM.OPSUD ---
Surgery/Procedure H&P Update DATE OF PROCEDURE: June 17, 2022 DATE H&P PERFORMED: 06/11/22 H&P UPDATE INFORMATION: I have reviewed H&P completed within last 30 days, I have examined patient prior to procedure and No changes to prior documentation PREOP DIAGNOSIS: desires sterilization PLANNED PROCEDURE: Operation Date: 06/17/22 11:20 Proposed Procedures p Laparoscopic bilateral salpingectomy 14159,Z30.2(Bilateral) - Cielo Brenner MD Related Problem List Diagnoses (1) Sterilization consult:
[2022-06-17] MEDS: vancomycin 1,000 MG in sodium chloride 0.9% 250 ML 250 MG IV (11:32)
--- NOTE | 2022-06-17 12:30 | ANES.PREANE2 ---
Pre-Anesthetic Assessment Height/Weight: Height 1.7 m Weight 77.564 kg Temp Pulse Resp BP Pulse Ox O2 Del Method 98.1 F 90 16 109/85 97 06/17/22 10:09 06/17/22 10:09 06/17/22 10:09 06/17/22 10:09 06/17/22 10:09 06/17/22 10:09 Preop Diagnosis: desires sterilization Operation Date: 06/17/22 11:20 Proposed Procedures p Laparoscopic bilateral salpingectomy 88046,Z30.2(Bilateral) - Cielo Brenner MD Familial anesthetic complications: none Was Beta Nancy taken within 24 hours: N/A Was Clonidine taken within 24 hours: N/A Last intake: Intake Last Liquid Date 06/16/22 Last Liquid Time 23:00 Last Solid Date 06/16/22 Last Solid Time 16:00 Social Tobacco and No alcohol Exam alert, oriented x 3 and regular rate & rhythm Airway Submandibular: within normal limits Cervical ROM: within normal limits Mallampati: Class II Dentition: chipped Pulmonary Chronic Obstructive Pulmonary Disease Anesthetic Plan ASA status: 2 Anesthesia: General Medications/Allergies Home Medications Medication Instructions Recorded Confirmed Last Taken Type ibuprofen 200 mg tablet 200 mg PO PRN 10/10/20 06/17/22 06/14/22 History multivitamin 1 tab PO DAILY 10/10/20 06/17/22 06/16/22 History Depo-Provera See Rx Instructions .Route .COMPLEX 10/12/20 06/17/22 3 Months Ago History ~03/17/22 fluticasone furoate 100 1 inh inhalation BEDTIME 06/11/22 06/17/22 06/16/22 History mcg-vilanterol 25 mcg/dose inhalation powder (Breo Ellipta) Allergies Allergy/AdvReac Type Severity Reaction Status Date / Time amoxicillin [From Augmentin] Allergy Unresponsiv Verified 06/17/22 10:08 e aspirin Allergy ALGY-Hives Verified 06/17/22 10:08 clavulanic acid Allergy Unresponsiv Verified 06/17/22 10:08 [From Augmentin] e Current Medications Generic Name Dose Route Start Last Admin Trade Name Freq PRN Reason Stop Dose Admin Sodium Chloride 1,000 mls @ 30 mls/hr 06/17/22 10:15 06/17/22 10:50 Sodium Chloride 0.9% IV 06/18/22 10:14 30 mls/hr .Q24H WAYNE Administration PFSH Anesthesia Medical History Cervical cancer Nephrolithiasis Surgical History Hx of tympanostomy tubes S/P tonsillectomy and adenoidectomy Family History Mother Ovarian cancer Uterine cancer Grandmother Ovarian cancer Uterine cancer Colon cancer Heart disease Thyroid disease Denies family history of Diabetes Hypercholesteremia Breast cancer Hypertension Stroke Female Reproductive History Date of last menstrual period: 06/02/07 Data Anesthesia Cardiac Studies: No Data to Display
--- NOTE | 2022-06-17 12:31 | P.OP_ITS ---
Operative Report Date of procedure: June 17, 2022 Pre-op diagnosis: Preop Diagnosis desires sterilization Post-op diagnosis: same Post-op findings: normal appearing uterus, tubes, ovaries. Procedure done: laparoscopic bilateral salpingectomy Specimens removed/disposition: bilateral fallopian tubes to pathology Surgeon: Cielo Brenner Anesthesia: General Estimated blood loss (mL): 10 IV fluids (mL): 600 Urine output (mL): 150 Complications: small partial perforation of zumi uterine manipulator in two areas. These areas were hemostatic Findings: 7 week sized uterus, normal appearing tubes and ovaries Condition: stable Disposition: PACU Procedure: The patient was taken to the operating room where general anesthesia was administered and found to be adequate. She was prepped and draped in the normal sterile fashion in the dorsal lithotomy position in [facility]. A Vale catheter was placed. A weighted speculum was placed into the vagina and the anterior lip of the cervix grasped with a single-tooth tenaculum. A ZUMI uterine manipulator was placed. The gloves were changed and attention was turned to the laparoscopic portion of the case. A 5 mm infraumbilical incision was made. The 5 mm trocar was placed using the easy view trocar. Intra-abdominal placement was confirmed and CO2 gas was used to insufflate the abdomen. Using direct visualization and illumination of the abdominal wall, two 5 mm incisions were made low and lateral. One on the left and one on the right. The 5mm trochars were then placed under direct visualization. I used the uterine manipulator to elevate the uterus and noticed a small blood clot was present. Using the suction/welder fitter apprentice, the clot was removed. There was a partial perforation present. It was not full thickness. It was hemostatic. I then elevated the uterus and noticed that there was another area where the zumi uterine manipulator was trying to come through. Using the uterine manipulator gently, the grasper was used to elevate the fallopian tubes. Using the laparoscopic cautery, the fallopian tube was clamped cauterized and cut. First on the right, then on the left. There was excellent hemostasis post removal of the bilateral tubes. Pictures were taken. All instruments were removed. The abdomen was desufflated. The incisions were closed with 4-0 Vicryl. The patient tolerated the procedure well. Sponge lap and needle counts were correct x3. She was taken to the recovery room in stable condition.
--- NOTE | 2022-06-17 12:44 | PM.DCS ---
Discharge Providers Date of Admission: 06/17/22 Date of Discharge: June 17, 2022 Attending Provider at Discharge: Cielo Brenner MD Primary Care Provider: John Madrigal NP Diagnoses at Discharge Discharge Diagnosis (1) Sterilization consult: Status: Acute Hospital Course Hospital Course The patient was admitted for surgery. She did well postoperatively and was ready for discharge. Physical Exam Urinary Catheter Management: Vale Latex: Cath Placed During This Visit: yes, but has since been removed by the nurse Urinary Catheter Date of Insertion: 06/17/22 Urinary Catheter Time of Insertion: 11:58 Date Urinary Catheter Removed: 06/17/22 Time Urinary Catheter Discontinued: 12:23 Discharge Data Studies Completed and Pending Pending at discharge Category Date Time Status ES surgery / GI images Routine Exams 06/17/22 11:03 Taken OR HCG Qualitative Urine Routine Lab 06/17/22 10:08 Ordered Urine Culture Routine Lab 06/17/22 11:58 Received Pathology: Surgical [PTH] Routine Pth 06/17/22 12:38 Ordered Vitals Last Vital Signs Temp 97.3 F L 06/17/22 12:36 Pulse 73 06/17/22 12:40 Resp 17 06/17/22 12:40 BP 101/60 06/17/22 12:40 Pulse Ox 97 06/17/22 12:40 O2 Del Method 06/17/22 12:40 O2 Flow Rate 8 06/17/22 12:36 Discharge Plan Discharge Patient Disposition: Home Condition: Stable Prescriptions: New hydrocodone-acetaminophen 5-325 mg tablet 1 tab PO Q4H Qty: 30 0RF Continued fluticasone furoate-vilanterol [Breo Ellipta] 100-25 mcg/dose blister with device 1 inh inhalation BEDTIME multivitamin Tablet 1 tab PO DAILY ibuprofen 200 mg Tablet 200 mg PO PRN Depo-Provera See Rx Instructions .ROUTE .COMPLEX Rx Instructions: ONE INJECTION EVERY 3 MONTHS PT STATES SHE IS DUE TO GET 06/18/22 Discharge Orders: Discharge Order (Routine); Ordered 06/17/22 Ordered By: Cielo Brenner Discharge Attestations Time Spent in Discharge Care*: less than 30 min Quality Metrics Clinical Quality Measures [ No reported AMI, CVA or VTE this stay] Coding Level of Care Code Acute Chg FW DC note Diagnoses Sterilization consult Z30.09
--- NOTE | 2022-06-17 15:54 | ANE.PACU2 ---
Inpatient post-anesthesia follow up: Airway intact: Yes Vital signs: Temperature 97.8 F Pulse Rate 68 Respiratory Rate 16 Blood Pressure 103/75 Pulse Oximetry 95 Oxygen Delivery Me thod Room Air Oxygen Flow Rate 8 Fraction of Inspir ed Oxygen Hydration adequate: Yes Nausea and vomiting: No Pain level: 3 Mental status: Baseline
[2022-06-18 12:20] LABS: OR HCG Qualitative Urine Negative (Negative)
== END 2022-06-17 14:00 | disposition home or self-care (01) ==
PROVIDERS: Anesthesiology; PCP Nurse Practitioner Family; Visit Provider Obstetrics & Gynecology
PROC: (CPT 58661; principal; 2022-06-17 11:15)
DX: Z30.2 Encounter for sterilization (principal); J44.9 Chronic obstructive pulmonary disease, unspecified; Z85.41 Personal history of malignant neoplasm of cervix uteri; F17.210 Nicotine dependence, cigarettes, uncomplicated
CPT/HCPCS: 58661; 84703; 87086; 88302; J1100; J1200; J1885; J2250; J2405; J2704; J2710; J3010; J3370; J3490; J7030; J7050

== ENCOUNTER 2022-10-28 12:12 | Outpatient (CLI) | payer MEDICAID, SELFPAY ==
--- NOTE | 2022-10-28 12:43 | XR_ITS ---
WS: [id number] Right knee, 3 views, 10/28/2022 Clinical Data: BILATERAL KNEE JOINT PAIN Comparison: None. Findings: No fractures or dislocations are seen. The joint spaces are normal. The patella is intact. The soft t issues are unremarkable. XR/XR knee RT 3V* [id number] Impression: Negative right knee. Kellgren-Juni Classification: grade 0 (none): definite absence of x-ray rossana nges of osteoarthritis
--- NOTE | 2022-10-28 12:43 | XR_ITS ---
WS: [id number] Left knee, 3 views, 10/28/2022. Clinical Data: BILATERAL KNEE JOINT PAIN Comparison: None. Findings: No fractures or dislocations are seen. The joint spaces are normal. The patella is intact. The soft t issues are unremarkable. XR/XR knee LT 3V* [id number] Impression: Negative left knee. Kellgren-Juni Classification: grade 0 (none): definite absence of x-ray rossana nges of osteoarthritis
== END 2022-10-28 12:13 | disposition home or self-care (01) ==
PROVIDERS: PCP Family Medicine; Visit Provider Family Medicine
DX: M25.561 Pain in right knee (principal); M25.562 Pain in left knee
CPT/HCPCS: 73562

== ENCOUNTER 2022-12-19 12:40 | Outpatient (CLI) | payer MEDICAID, SELFPAY ==
--- NOTE | 2022-12-19 13:05 | MR_ITS ---
WS: [id number] MRI ABDOMEN with and without CONTRAST. COMPARISON: Renal ultrasound 05/23/2022 Multiplanar, multisequence imaging is performed with and without contrast. MultiHance 18 mL. History: Renal cysts. RIGHT kidney: Normal size kidney measuring 10 cm in length. No solid mass or enhancing lesions. There are a few very tiny cortical cysts within the parenchyma which are too small to characterize. There is no renal obstruction. No perinephric stranding. LEFT kidney: Enlarged kidney measuring 14.1 cm. There are numerous cysts throughout the kidney. Some of these cysts are complex and others are of increased signal on the T1 sequences. Most of these cyst s are simple. None of these masses/cysts enhance. The post contrast imaging is best evaluated on the coronal plane. Significant motion artifact on the axial plane. There is no obstruction. No solid mass . There is no ascites. The liver and spleen are normal. No hepatic cyst identified. Negative gallbladde r. MR/MR abdomen wo/w con* [id number] IMPRESSION: 1. Enlarged LEFT kidney with numerous renal cysts. Some of these cysts are sim ple and others are complex. No enhancement within any of the cystic masses. 2. No hydronephrosis. 3. There are very few cortical cysts in the RIGHT kidney. These cysts or very small, 5 mm or less. 4. No hydronephrosis within either kidney. No ascites.
[2022-12-19] MEDS: gadobenate dimeglumine 20 mL vial IV (14:20)
== END 2022-12-19 12:41 | disposition home or self-care (01) ==
LOC: RAD 12:40
PROVIDERS: PCP Family Medicine; Visit Provider Internal Medicine Nephrology
DX: Q61.4 Renal dysplasia (principal); Q61.02 Congenital multiple renal cysts
CPT/HCPCS: 74183; A9577

== ENCOUNTER 2023-06-12 13:32 | Outpatient (CLI) | payer MEDICAID, SELFPAY ==
--- NOTE | 2023-06-12 13:47 | XR_ITS ---
WS: [email or web address] EXAMINATION: XR chest 2V* [id number] REASON FOR EXAM: ACUTE COUGH COMPARISON: 01/01/2022 ORDER DATE: 06/12/2023 1:50 PM FINDINGS:Lungs: Emphysematous changes. Hyperinflation pattern. Negative for consolidation. Pleural spaces: Unremarkable. No pleural effusion. No pneumothorax. Heart/Mediastinum: Unremarkable. No cardiomegaly. Bones/joints: Unremarkable. XR/XR chest 2V* [id number] IMPRESSION: 1. No focal acute pulmonary disease. 2. No change from prior.
== END 2023-06-12 13:33 | disposition home or self-care (01) ==
PROVIDERS: PCP Family Medicine; Visit Provider Family Medicine
DX: R05.1 Acute cough (principal)
CPT/HCPCS: 71046

== ENCOUNTER → 2023-09-07 14:25 | Outpatient (BNVA) | payer MEDICAID, SELFPAY | PROVIDERS: PCP Family Medicine; Visit Provider Family Medicine | DX: E28.2 Polycystic ovarian syndrome (principal) | CPT/HCPCS: 80053; 80061; 82672; 83001; 83002; 84144; 84439; 84443; 85025 ==

== ENCOUNTER 2023-09-18 13:59 | Outpatient (CLI) | payer MEDICAID, SELFPAY ==
--- NOTE | 2023-09-18 14:15 | US_ITS ---
WS: [id number] US pelv w/transvag [id number] HISTORY: ovarian cyst? possible PCOS COMPARISON: None available. Uterus: 6.9 cm x 4.0 cm x 2.5 cm. Normal size anteverted uterus. No fibroid or mass. Endometrium: 0.6 cm. Right ovary: 1.6 cm x 1.3 cm x 1.5 cm. Normal size and vascularity, no cystic or solid masses. Very f ew small follicles are noted. Left ovary: 2.0 cm x 1.3 cm x 1.2 cm. Normal size and vascularity, no cystic or solid masses. A few s mall follicles are noted. No free fluid in the cul-de-sac. IMPRESSION: Normal pelvic ultrasound. No evidence for polycystic ovarian syndrome by ultrasound.
== END 2023-09-18 14:00 | disposition home or self-care (01) ==
LOC: RAD 14:00
PROVIDERS: PCP Family Medicine; Visit Provider Family Medicine
DX: E28.2 Polycystic ovarian syndrome (principal)
CPT/HCPCS: 76830; 76856

== ENCOUNTER 2023-10-20 11:51 | Outpatient (CLI) | payer MEDICAID, SELFPAY ==
[2023-10-20 12:58] LABS: Creatinine Urine, Random 187 mg/dL (28-217); Microalbum Creatinine Ratio Ur 16 mg/dL (0-20); Microalbumin Random Urine 3 ug/dL (0-20)
[2023-10-20 13:14] LABS: Basophils % 0.4 %; Eosinophils # 0.1 10^3/uL (0.0-0.8); Eosinophils % 0.8 %; Hematocrit 48.2 % (36-47); Lymphocytes # 3.4 10^3/uL (0.8-4.8); Lymphocytes % 43.2 %; Mean Corpuscular HGB Conc 33.4 g/dL (30-55); Mean Corpuscular Hemoglobin 32.1 pg (27-33); Mean Corpuscular Volume 96.2 fl (85-98); Mean Platelet Volume 11.1 fL (7.4-10.4); Monocytes # 0.3 10^3/uL (0.2-0.9); Monocytes % 3.8 %; Neutrophils # 4.04 10^3/uL (1.8-7.7); Neutrophils % 51.5 %; Nucleated Red Blood Cells % 0 %; Platelet Count 181 10^3/cmm (157-399); Red Blood Count 5.01 10^6/uL (3.85-5.65); Red Cell Distribution Width 12.8 % (12.1-15.1); White Blood Count 7.84 10^3/uL (3.29-11.43)
[2023-10-20 13:29] LABS: Albumin Level 4.1 g/dL (3.5-5.2); Anion Gap 15.8 (5-19); Blood Urea Nitrogen 9 mg/dL (6-20); Calcium 9.2 mg/dL (8.5-10.5); Carbon Dioxide 24 mmol/L (22-29); Chloride 102 mmol/L (98-107); Glomerular Filtration Rate 80.3 mL/min (90-130); Glucose 124 mg/dL (65-115); Phosphorus 2.9 mg/dL (2.5-4.5); Potassium 3.8 mmol/L (3.5-5.1); Sodium 138 mmol/L (136-145)
[2023-10-20 13:31] LABS: Calcium 9.2 mg/dL (8.5-10.5)
[2023-10-20 13:39] LABS: Parathyroid Hormone 42.7 pg/mL (15-65)
[2023-10-20 14:41] LABS: Slide Review Slide Review Perform
== END 2023-10-20 11:52 | disposition home or self-care (01) ==
LOC: LAB 11:59
PROVIDERS: PCP Family Medicine; Visit Provider Registered Nurse
DX: Q61.4 Renal dysplasia (principal)
CPT/HCPCS: 36415; 80069; 82044; 82310; 83970; 85025

== ENCOUNTER → 2024-07-22 16:06 | Outpatient (BNVA) | payer MEDICAID, SELFPAY | PROVIDERS: PCP Family Medicine; Visit Provider Family Medicine | DX: R63.4 Abnormal weight loss; Z86.39 Personal history of other endocrine, nutritional and metabolic disease | CPT/HCPCS: 80053; 82728; 83550; 84439; 84443; 85025; 86376 ==

== ENCOUNTER 2024-07-25 11:58 | Outpatient (CLI) | payer MEDICAID, SELFPAY | END 2024-07-25 11:59 | disposition home or self-care (01) | LOC: LAB 11:59 | PROVIDERS: PCP Family Medicine; Visit Provider Family Medicine | DX: Z86.39 Personal history of other endocrine, nutritional and metabolic disease (principal); R63.4 Abnormal weight loss | CPT/HCPCS: 36415; 86376 ==

== ENCOUNTER 2025-01-02 16:01 | Outpatient (CLI) | payer MEDICAID, SELFPAY ==
[2025-01-02 16:41] LABS: Anion Gap 13.3 (5-19); Blood Urea Nitrogen 16 mg/dL (6-20); Calcium 9.7 mg/dL (8.5-10.5); Carbon Dioxide 29 mmol/L (22-29); Chloride 102 mmol/L (98-107); Glomerular Filtration Rate 69.7 mL/min (90-130); Glucose 120 mg/dL (65-115); Osmolality Calculated 292 mOsm/kg (285-295); Potassium 4.3 mmol/L (3.5-5.1); Sodium 140 mmol/L (136-145)
== END 2025-01-02 16:02 | disposition home or self-care (01) ==
LOC: LAB 16:05
PROVIDERS: PCP Family Medicine; Visit Provider Physician Assistant
DX: N28.1 Cyst of kidney, acquired (principal)
CPT/HCPCS: 36415; 80048